=== PATIENT | male | born 1950 | race Caucasian/White ===

== ENCOUNTER 2022-08-07 16:12 | Inpatient (IN) | payer MEDICARE, OTHER ==
[~2022-08-07 16:12] MED LIST: Iopamidol-370 76% 500 ML 1 ML ONE
[2022-08-07 18:20] LABS: #Eosinphils 0.1 thou/uL (0.0-0.7); #Lymphocytes 1.3 thou/uL (1.20-3.40); #Monocytes 0.7 thou/uL (0.11-0.59); #Neutrophils 3.2 thou/uL (1.40-6.50); %Basophils 0.5 % (0.0-1.0); %Eosinophils 1.3 % (0.0-10.0); %Lymphocytes 23.9 % (21.0-51.0); %Monocytes 13.5 % (0.0-10.0); %Neutrophils 60.8 % (42.0-75.0); Hemoglobin 8.2 g/dL (14.0-18.0); Mean Corpuscular HGB CONC 29.3 g/dL (32.0-36.0); Mean Corpuscular Hemoglobin 32.3 pg (27.0-31.0); Mean Platelet Volume 7.8 fL (7.4-10.4); Platelet Count 239 10x3/uL (130-400); RBC Distribution Width 21.2 % (11.5-14.5); Red Blood Cell (RBC) Count 2.55 mill/uL (4.70-6.10); White Blood Cell (WBC) Count 5.2 10x3/uL (4.8-10.8)
[2022-08-07] MEDS ORDERED: Morphine 4 MG/ML VIAL ONE (18:29)
[2022-08-07] MEDS ORDERED: methylPREDNISolone Sod Succ/PF 125 MG/2 ML VIAL ONE (18:30)
[2022-08-07] MEDS ORDERED: Albuterol 2.5 MG/0.5 ML NEB ONE (18:30)
[2022-08-07] MEDS ORDERED: Ondansetron PF 4 MG/2 ML Vial ONE (18:30)
[2022-08-07] MEDS ORDERED: Ipratropium Bromide 2.5 ml Neb ONE (18:31)
[2022-08-07 18:40] LABS: ALT (SGPT) 15 U/L (8-55); AST (SGOT) 20 U/L (5-34); Albumin 3.1 g/dL (3.4-4.8); Alkaline Phosphatase 72 U/L (40-110); BUN (Urea Nitrogen) 21 mg/dL (8.4-25.7); Bilirubin, Total 0.2 mg/dL (0.2-1.2); Calc. Creatinine Clearance 0 mL/min (70-130); Calcium 8.7 mg/dL (7.8-10.44); Estimated GFR 104; Globulin 3.3 g/dL (2.4-3.5); Glucose 127 mg/dL (80-115); Protein, Total 6.4 g/dL (5.8-8.1)
[2022-08-07 18:41] LABS: Anisocytosis SLIGHT = 6-15 cells (100X) (0-5/hpf); Basophilic Stippling SLIGHT = 1-2 cells (100X) (None Seen); MDiff Complete? YES; Macrocytosis SLIGHT = 6-15 cells (100X) (0-5/hpf); Ovalocytes SLIGHT = 2-5 cells (100X) (0-1/hpf); Platelet Morphology Comment Appears Adequate; Polychromasia MODERATE = 3-4 cells (100X) (0-2/hpf); Schistocytes SLIGHT = 2-5 cells (100X) (0-1/hpf); Target Cells SLIGHT = 2-5 cells (100X) (0-1/hpf)
[2022-08-07 18:51] LABS: Anion Gap 12 mmol/L (10-20); Carbon Dioxide 39 mmol/L (23-31); Chloride 98 mmol/L (98-107); Potassium 4.3 mmol/L (3.5-5.1); Sodium 145 mmol/L (136-145)
[2022-08-07] MEDS ORDERED: Cefepime 1 GM VIAL ONE (19:07)
[2022-08-07] MEDS ORDERED: Azithromycin 500 MG VIAL ONE (19:43)
[2022-08-07] MEDS ORDERED: Ondansetron PF 4 MG/2 ML Vial IVP PRN (21:58)
[2022-08-07] MEDS ORDERED: HYDROcodone/Acetaminophen 5/325 mg Tablet PO PRN (21:58)
[2022-08-07] MEDS ORDERED: Acetaminophen 325 MG TAB PO PRN (21:58)
[2022-08-07] MEDS ORDERED: Nicotine 14 MG PATCH TD SCH (22:00)
[2022-08-07 22:14] LABS: SARS-CoV-2 NAA Rapid Test Not Detected (NotDetected)
[2022-08-07] MEDS ORDERED: Dextrose 5%-Lactated Ringers 1,000 ML IV SCH (22:15)
[2022-08-07 23:04] VITALS: BMI 14.8
[2022-08-08] MEDS ORDERED: Ipratropium/Albuterol 3 ML NEB NEB PRN (00:10)
[2022-08-08] MEDS ORDERED: Dextrose 5% in Water 1,000 ML IV PRN (00:12)
[2022-08-08] MEDS ORDERED: Dextrose 50% Abboject 50 ML SYRINGE SLOW IVP PRN (00:12)
[2022-08-08] MEDS ORDERED: Morphine 2 MG/ML VIAL SLOW IVP SCH (00:15)
[2022-08-08] MEDS: methylPREDNISolone Sod Succ 40 MG VIAL IVP SCH ×2 (00:17→10:53)
[2022-08-08] MEDS ORDERED: Ipratropium/Albuterol 3 ML NEB NEB SCH (01:00)
[2022-08-08] MEDS: Ipratropium/Albuterol 3 ML NEB NEB SCH ×4 (02:36→14:56)
[2022-08-08] MEDS: Morphine 2 MG/ML VIAL SLOW IVP PRN ×2 (04:57→12:28)
[2022-08-08 05:14] LABS: Anion Gap 10 mmol/L (10-20); BUN (Urea Nitrogen) 23 mg/dL (8.4-25.7); Calc. Creatinine Clearance 54 mL/min (70-130); Calcium 8.3 mg/dL (7.8-10.44); Carbon Dioxide 37 mmol/L (23-31); Chloride 101 mmol/L (98-107); Estimated GFR 97; Glucose 314 mg/dL (80-115); Sodium 143 mmol/L (136-145)
[2022-08-08 05:36] LABS: Band 13 % (5-11); Hemoglobin 8.5 g/dL (14.0-18.0); Hypochromia SLIGHT = 6-15 cells (100X) (0-5/hpf); Lymphocytes 3 % (21-51); MDiff Complete? YES; Macrocytosis SLIGHT = 6-15 cells (100X) (0-5/hpf); Mean Corpuscular HGB CONC 29.1 g/dL (32.0-36.0); Mean Corpuscular Hemoglobin 32.5 pg (27.0-31.0); Mean Platelet Volume 8.3 fL (7.4-10.4); Neutrophil 84 % (42-75); Platelet Count 306 10x3/uL (130-400); Platelet Morphology Comment Appears Adequate; Polychromasia SLIGHT = 2-3 cells (100X) (0-2/hpf); RBC Distribution Width 21.1 % (11.5-14.5); Red Blood Cell (RBC) Count 2.62 mill/uL (4.70-6.10); White Blood Cell (WBC) Count 5.9 10x3/uL (4.8-10.8)
[2022-08-08] MEDS ORDERED: Lactated Ringer's 1,000 ML IV SCH (05:45)
[2022-08-08] MEDS ORDERED: Cefepime 2 GM in Sodium Chloride 0.9% 100 ML IVPB SCH (06:00)
[2022-08-08] MEDS ORDERED: Famotidine/PF 20 mg/2ml Vial SLOW IVP SCH (09:00)
[2022-08-08] MEDS ORDERED: Famotidine 20 MG TAB PO SCH (09:00)
[2022-08-08] MEDS ORDERED: Sodium Bicarb 50 MEQ/50 ML VIAL IVP SCH (10:00)
[2022-08-08] MEDS ORDERED: Morphine 2 MG/ML VIAL SLOW IVP PRN (15:42)
[2022-08-08] MEDS ORDERED: Lorazepam 2 MG/ML VIAL SLOW IVP PRN (15:43)
[2022-08-08 16:18] VITALS: TEMP 97.4
== END 2022-08-08 16:17 | disposition hospice, inpatient (51) | DRG 180 ==
LOC: ERS 16:12 → IMCU/EMU 20:22
PROVIDERS: ADMIT Internal Medicine; ATTEND Internal Medicine
PROC: 5A0935A Assistance with Respiratory Ventilation, Less than 24 Consecutive Hours, High Flow/Velocity Cannula (ICD-10-PCS; principal; 2022-08-07)
DX: C34.31 Malignant neoplasm of lower lobe, right bronchus or lung (principal); Z66 Do not resuscitate; Z51.5 Encounter for palliative care; E43 Unspecified severe protein-calorie malnutrition; J96.21 Acute and chronic respiratory failure with hypoxia; R64 Cachexia; Z68.1 Body mass index [BMI] 19.9 or less, adult; J44.1 Chronic obstructive pulmonary disease with (acute) exacerbation; Z20.822 Contact with and (suspected) exposure to COVID-19; D64.9 Anemia, unspecified; R79.89 Other specified abnormal findings of blood chemistry; D63.8 Anemia in other chronic diseases classified elsewhere; F17.210 Nicotine dependence, cigarettes, uncomplicated; R29.818 Other symptoms and signs involving the nervous system; Z79.899 Other long term (current) drug therapy
CPT/HCPCS: 36415; 36416; 70450; 71260; 74177; 80048; 80053; 83605; 83880; 84484; 85025; 87040; 93005; 94640; 96361; 96365; 96367; 96375; J0456; J0692; J1650; J2060; J2270; J2272; J2405; J2920; J2930; J3490; J7120; J7611; J7620; Q9967; S0028

== ENCOUNTER 2022-08-08 16:25 | Inpatient (IN) | payer OTHER ==
[2022-08-08 16:45] VITALS: BMI 14.6
[2022-08-08] MEDS ORDERED: Morphine 4 MG/ML VIAL SLOW IVP PRN (17:11)
[2022-08-08] MEDS ORDERED: Lorazepam 2 MG/ML VIAL SLOW IVP PRN (17:13)
[2022-08-08] MEDS ORDERED: Acetaminophen 650 MG Suppository PR PRN (17:15)
[2022-08-08] MEDS ORDERED: diphenhydrAMINE 50 MG/ML VIAL IVP PRN (17:15)
[2022-08-08] MEDS ORDERED: Scopolamine 1.5 mg/72 hour Patch TOP PRN (17:15)
[2022-08-08] MEDS ORDERED: Lorazepam 2 MG/ML VIAL SLOW IVP SCH (18:00)
[2022-08-08] MEDS ORDERED: Morphine 4 MG/ML VIAL SLOW IVP SCH (18:00)
== END 2022-08-08 19:45 | disposition expired | DRG 951 ==
LOC: IMCU/EMU 16:25
PROVIDERS: ADMIT Family Medicine; ATTEND Family Medicine
DX: Z51.5 Encounter for palliative care (principal); J96.21 Acute and chronic respiratory failure with hypoxia; R64 Cachexia; J44.1 Chronic obstructive pulmonary disease with (acute) exacerbation; Z66 Do not resuscitate
CPT/HCPCS: J2060; J2270